=== PATIENT | female | born 1950 | race Caucasian/White ===

== ENCOUNTER 2017-09-14 14:00 | Emergency (ER) | payer MEDICAID ==
[2017-09-14 14:00] VITALS: BMI 32.0
--- NOTE | 2017-09-14 14:25 | ED PDOC ---
Arrival/HPI - General Historian: Patient <Dereck Kim A - Last Filed: 09/14/17 16:27> <Adam Clement - Last Filed: 09/14/17 21:12> - General Chief Complaint: Trauma Time Seen by Provider: 09/14/17 14:10 - History of Present Illness Narrative History of Present Illness (Text): 09/14/17 14:20 67yo female with PMHx of Anemia who present with complaint of headache, facial pain, right hand and b/l knee pain s/p trauma. The daughter who is by the bedside states patient slipped and fell, few minutes ago. Notes that pain started s/p. Report that headache. Denies LOC, nausea, vomiting, focal weakness , dizziness, back pain, urinary/fecal incontinence, slurred speech, any other complaint. (Dereck Kim A) Past Medical History - Provider Review Nursing Documentation Reviewed: Yes - Reproductive Menopause: Yes - Cardiac Hx Cardiac Disorders: No - Pulmonary Hx Respiratory Disorders: No - Neurological Hx Neurological Disorder: No - HEENT Hx HEENT Disorder: No - Renal Hx Renal Disorder: No - Endocrine/Metabolic Hx Endocrine Disorders: No - Hematological/Oncological Hx Blood Disorders: Yes Hx Cancer: Yes (2013, breast cancer) - Integumentary Hx Dermatological Disorder: No - Musculoskeletal/Rheumatological Hx Musculoskeletal Disorders: Yes Hx Back Pain: Yes - Gastrointestinal Hx Gastrointestinal Disorders: Yes Hx Gastritis: Yes Hx Gastroesophageal Reflux: Yes - Psychiatric Hx Substance Use: No - Surgical History Hx Appendectomy: Yes Other/Comment: RIGHT BREAST LUMPECTOMY - Anesthesia Hx Anesthesia Reactions: No Hx Malignant Hyperthermia: No - Suicidal Assessment Feels Threatened In Home Enviroment: No <Dereck Kim A - Last Filed: 09/14/17 16:27> Family/Social History - Physician Review Nursing Documentation Reviewed: Yes Family/Social History: Unknown Family HX Smoking Status: Never Smoked Hx Alcohol Use: No Hx Substance Use: No Hx Substance Use Treatment: No <Dereck Kim A - Last Filed: 09/14/17 16:27> Allergies/Home Meds <Dereck Kim A - Last Filed: 09/14/17 16:27> <Adam Clement - Last Filed: 09/14/17 21:12> Allergies/Adverse Reactions: Allergies No Known Allergies Allergy (Verified 09/14/17 14:11) Home Medications: Home Meds Medication Instructions Recorded Confirmed Harmans-3 Fatty Acids/Fish Oil [Fish 1 cap PO DAILY 09/14/17 09/14/17 Oil 1,000 mg Capsule] Omeprazole [Omeprazole] 20 mg PO DAILY 09/14/17 09/14/17 Review of Systems - Physician Review All systems were reviewed & negative as marked: Yes - Review of Systems Constitutional: Normal Eyes: Normal ENT: Normal Respiratory: Normal Cardiovascular: Normal Gastrointestinal: Normal Genitourinary Female: Normal Musculoskeletal: Arthralgias (B/L knee and right hand) Skin: Normal Neurological: Headache Endocrine: Normal Hemo/Lymphatic: Normal Psychiatric: Normal <Diru,Happiness A - Last Filed: 09/14/17 16:27> Physical Exam Vital Signs Reviewed: Yes Temperature: Afebrile Blood Pressure: Normal Pulse: Regular Respiratory Rate: Normal Appearance: Positive for: Well-Appearing, Non-Toxic, Comfortable Pain Distress: None Mental Status: Positive for: Alert and Oriented X 3 - Systems Exam Head: Present: Atraumatic, Normocephalic Pupils: Present: PERRL Extroacular Muscles: Present: EOMI Conjunctiva: Present: Normal Mouth: Present: Moist Mucous Membranes Neck: Present: Normal Range of Motion Respiratory/Chest: Present: Clear to Auscultation, Good Air Exchange. No: Respiratory Distress, Accessory Muscle Use Cardiovascular: Present: Regular Rate and Rhythm, Normal S1, S2. No: Murmurs Abdomen: No: Tenderness, Distention, Peritoneal Signs Back: Present: Normal Inspection Upper Extremity: Present: Normal Inspection. No: Cyanosis, Edema Lower Extremity: Present: Normal Inspection. No: Edema Neurological: Present: GCS=15, CN II-XII Intact, Speech Normal Skin: Present: Warm, Dry, Normal Color. No: Rashes Psychiatric: Present: Alert, Oriented x 3, Normal Insight, Normal Concentration <Diru,Happiness A - Last Filed: 09/14/17 16:27> Vital Signs Temp Pulse Resp BP Pulse Ox 09/14/17 16:46 98.0 F 79 18 131/74 99 09/14/17 16:44 76 17 132/77 98 09/14/17 14:05 98.1 F 84 18 135/80 99 - RAD Interpretation Radiology Orders: 09/14/17 14:13 HEAD W/O CONTRAST [CT] Stat MAXILLOFACIAL W/O CONTRAST [CT] Stat 09/14/17 14:14 HAND RIGHT 3 VIEWS [RAD] Stat KNEES BILATERAL [RAD] Stat - Medication Orders Current Medication Orders: Discontinued Medications Tramadol HCl (Ultram) 50 mg PO STAT STA Stop: 09/14/17 14:16 Last Admin: 09/14/17 14:33 Dose: 50 mg MAR Pain Assessment Document 09/14/17 14:33 SF (Rec: 09/14/17 14:33 SF [id number]) Pain Reassessment Is this a pain reassessment? Yes Sleep Is patient sleeping during reassessment? No Presence of Pain Presence of Pain Yes - PA / [employer] / Resident Statement / has examined the patient and agrees with the treatment plan. <Adam Clement - Last Filed: 09/14/17 21:12> Disposition/Present on Arrival - Present on Arrival Any Indicators Present on Arrival: No History of DVT/PE: No History of Uncontrolled Diabetes: No Urinary Catheter: No History of Decub. Ulcer: No History Surgical Site Infection Following: None - Disposition Have Diagnosis and Disposition been Completed?: Yes Disposition Time: 16:30 Patient Plan: Discharge <Dereck Kim - Last Filed: 09/14/17 16:27> <Adam Clement - Last Filed: 09/14/17 21:12> - Disposition Diagnosis: Headache, Facial contusion, Knee sprain, Hand pain Disposition: HOME/ ROUTINE Condition: STABLE Discharge Instructions (ExitCare): Headache, Adult, Knee Sprain (DC), Hand Pain Additional Instructions: Follow up with your Doctor Return to ED for any new or worsening symptoms Prescriptions: traMADol [Ultram] 50 mg PO TID #10 tab Referrals: Yulisa Banerjee DO [Primary Care Provider] - Follow up with primary Forms: flatev (Eritrean)
--- NOTE | 2017-09-14 15:34 | CT ---
PROCEDURE: CT HEAD WITHOUT CONTRAST. HISTORY: Status post trauma with headaches. COMPARISON: Correlation made with concurrent CT scan maxillofacial skeleton TECHNIQUE: Axial computed tomography images were obtained through the head/brain without intravenous contrast. Radiation dose: Total exam DLP = 815.45 mGy-cm. This CT exam was performed using one or more of the following dose reduction techniques: Automated exposure control, adjustment of the mA and/or kV according to patient size, and/or use of iterative reconstruction technique. FINDINGS: HEMORRHAGE: No acute parenchymal, subarachnoid or extra-axial hemorrhage. BRAIN: There are no focal areas of abnormal attenuation seen within the substance of the brain. No obvious parenchymal nor extra-axial mass or collection seen on this noncontrast study. Note made of Chiari 1 malformation. Followup nonemergent MRI of the Cervical and thoracic spine recommended to assess for syrinx cavity formation known to occur in cases of Chiari 1 malformation. The ventricles are mildly prominent though do not appear to be under tension. VENTRICLES: No obstructive hydrocephalus. CALVARIUM: No acute calvarial fractures. PARANASAL SINUSES: Unremarkable as visualized. No significant inflammatory changes. MASTOID AIR CELLS: Unremarkable as visualized. No inflammatory changes. OTHER FINDINGS: None. IMPRESSION: No acute intracranial hemorrhage. Mildly prominent ventricles suggesting mild central volume loss. No evidence of obstructive hydrocephalus. Findings consistent with Chiari 1 malformation. . Followup MRI of the cervical and thoracic spine recommended as above.
--- NOTE | 2017-09-14 15:41 | CT ---
PROCEDURE: CT MAXILLOFACIAL BONES WITHOUT CONTRAST HISTORY: Status post trauma with facial pain COMPARISON: Comparison made with concurrent CT scan brain. TECHNIQUE: Contiguous axial CT images of the maxillofacial bones were obtained. Coronal and sagittal reformats were generated. Radiation dose: Total exam DLP = 773.93 mGy-cm. This CT exam was performed using one or more of the following dose reduction techniques: Automated exposure control, adjustment of the mA and/or kV according to patient size, and/or use of iterative reconstruction technique. FINDINGS: NASAL BONES: Unremarkable. . There is localized leftward deviation of the nasal septum which is associate with a tiny spur all arising from the left aspect of the nasal septum Small bilateral ovi bullosa present. ORBITS: Unremarkable. PARANASAL SINUSES/ MASTOIDS: There is tiny elliptical shaped bony density within the mid right parasagittal ethmoid air complex possibly representing a incidental tiny osteoma MAXILLA: Unremarkable. MANDIBLE/ TEMPOROMANDIBULAR JOINTS: Unremarkable. SKULL BASE: Unremarkable. TEMPORAL BONES: Middle ears and mastoid grossly unremarkable. OTHER FINDINGS: Re- demonstrated is Chiari 1 malformation. The please refer to concurrent CT scan of the brain and corresponding report for additional details and recommendations. . IMPRESSION: No evidence of acute maxillofacial skeletal fractures. Chiari 1 malformation.
[2017-09-14 16:47] VITALS: BP 131/74; PULSE 79; RESP 18; TEMP 98; O2SAT 99
--- NOTE | 2017-09-14 17:23 | RAD ---
PROCEDURE: Right Hand Radiographs. HISTORY: hand pain s/p trauma COMPARISON: None. FINDINGS: BONES: No evidence of acute displaced fracture nor dislocation. 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 There is a tiny bony density within the ulnar soft tissues at the level of the DIP joint 3rd finger that may represent some all posttraumatic mineralization. SOFT TISSUES: Soft tissues appear grossly unremarkable without subcutaneous emphysema or foreign bodies. OTHER FINDINGS: None. IMPRESSION: No evidence of acute displaced fracture nor dislocation. . Mild degenerative osteoarthritis as described
--- NOTE | 2017-09-14 17:43 | RAD ---
PROCEDURE: Bilateral Knee Radiographs. HISTORY: knee pain s/p trauma COMPARISON: None. FINDINGS: BONES: No evidence of acute displaced fracture nor dislocation. The osseous structures appear intact. JOINTS: Minor degenerative osteoarthritis both knees. SOFT TISSUES: Grossly unremarkable without subcutaneous air or radiopaque foreign bodies JOINT EFFUSION: Evaluation for a joint effusion limited on the right due to poor patient positioning. Suspect trace left-sided effusion. OTHER FINDINGS: None. IMPRESSION: Limited study demonstrating no fractures. Minor DJD.
== END 2017-09-14 16:47 | disposition home or self-care (01) ==
LOC: ED 14:00
DX: S00.83XA Contusion of other part of head, initial encounter (principal); S83.90XA Sprain of unspecified site of unspecified knee, initial encounter; W01.0XXA Fall on same level from slipping, tripping and stumbling without subsequent striking against object, initial encounter; M79.641 Pain in right hand; R51 Headache; Z85.3 Personal history of malignant neoplasm of breast